=== PATIENT | female | born 1965 | race Caucasian/White ===

== ENCOUNTER 2018-03-02 07:00 | Day surgery (SDC) | payer OTHER ==
[~2018-03-02] VITALS: Ht 157.5 cm; Wt 57.0 kg
[~2018-03-02 07:00] MED LIST: SODIUM CHLORIDE 0.9% 1,000 ML IV ONE
[2018-03-02] MEDS ORDERED: SODIUM CHLORIDE 0.9% 1,000 ML IV ONE (07:29)
[2018-03-02] MEDS ORDERED: FentaNYL CITRATE-PF 100 MCG/2 ML VIAL ONE (08:18)
[2018-03-02] MEDS ORDERED: MIDAZOLAM HCL 2 MG/2 ML VIAL ONE (08:18)
[2018-03-02] MEDS ORDERED: FURO40 PO (08:30)
[2018-03-02] MEDS ORDERED: ATOR10TA84 PO (08:30)
[2018-03-02] MEDS ORDERED: LISI-661 PO (08:30)
[2018-03-02] MEDS ORDERED: AMLO-512 PO (08:30)
[2018-03-02] MEDS ORDERED: ASPI81TA87 PO (08:30)
[2018-03-02] MEDS ORDERED: CLON0.2T PO (08:30)
[2018-03-02] MEDS ORDERED: DOXY100C PO (08:30)
[2018-03-02] MEDS ORDERED: BUDE0.252 NEB (08:30)
[2018-03-02] MEDS ORDERED: METO50 PO (08:30)
[2018-03-02] MEDS ORDERED: HYDR-2924 PO (08:30)
[2018-03-02] MEDS ORDERED: IPRA3AMP23 IH (08:30)
[2018-03-02] MEDS ORDERED: PRED10 PO (08:30)
[2018-03-02] MEDS ORDERED: OMEP20 PO (08:30)
[2018-03-02] MEDS ORDERED: MethylPREDNISolone SOD SUCC 125 MG/2 ML VIAL IVP ONE (09:30)
[2018-03-02] MEDS ORDERED: MethylPREDNISolone SOD SUCC 125 MG/2 ML VIAL ONE (09:50)
[2018-03-02] MEDS ORDERED: LIDOCAINE 4% 50 ML SOLUTION ONE (15:12)
[2018-03-02] MEDS ORDERED: BENZOCAINE 20% 50 MCG/SPRAY 57 GM ONE (15:12)
[2018-03-02] MEDS ORDERED: LIDOCAINE 2% 30 ML JELLY ONE (15:12)
[2018-03-02] MEDS ORDERED: OXYGEN THERAPY IH SCH (20:00)
== END 2018-03-02 11:20 | disposition home or self-care (01) ==
LOC: EDSEX 07:00 → SURGERY 07:00
PROVIDERS: ATTEND Internal Medicine Critical Care Medicine
DX: J38.4 Edema of larynx (principal); B37.0 Candidal stomatitis; J84.111 Idiopathic interstitial pneumonia, not otherwise specified; I10 Essential (primary) hypertension; M19.90 Unspecified osteoarthritis, unspecified site; E78.00 Pure hypercholesterolemia, unspecified; Z79.82 Long term (current) use of aspirin; Z79.51 Long term (current) use of inhaled steroids; Z79.2 Long term (current) use of antibiotics; Z87.01 Personal history of pneumonia (recurrent); Z98.890 Other specified postprocedural states; Z79.899 Other long term (current) drug therapy
CPT/HCPCS: 31623; 31624; 71045; 87015; 87070; 87077; 87186; 87205; 87206; 87220; 88108; 88312; J2250; J2930; J3010; J7030